=== PATIENT | male | born 1995 | race Caucasian/White ===

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

== ENCOUNTER 2017-09-22 09:41 | Emergency (ER) | payer SELFPAY, OTHER ==
[2017-09-25 19:13] LABS: HERPES SIMPLEX TYPE 1 Negative (Negative); HERPES SIMPLEX TYPE 2 Negative (Negative)
== END 2017-09-22 10:39 | disposition home or self-care (01) ==
LOC: ER 10:39
DX: A60.01 Herpesviral infection of penis (principal); Z88.0 Allergy status to penicillin
CPT/HCPCS: 36415; 87529; 99283

== ENCOUNTER 2017-12-04 06:38 | Emergency (ER) | payer SELFPAY ==
[~2017-12-04] VITALS: Ht 188 cm; Wt 83.9 kg
[~2017-12-04 06:38] MED LIST: METH-37 PO; TRAM-48 PO; VALA1000 PO
[2017-12-04] MEDS ORDERED: LIDOCAINE 2% 20 ML VIAL. IJ ONE (07:30)
[2017-12-04] MEDS ORDERED: HYDROcodone/APAP 5/325MG 1 TAB TABLET PO ONE (07:30)
[2017-12-04] MEDS ORDERED: LIDOCAINE WITH 8.4% SOD BICARB 3 ML DISP.SYRIN. ONE (07:49)
--- NOTE | 2017-12-04 07:55 | PHYS DOC ---
Past Medical History Past Medical History: No Pertinent History Past Surgical History: No Surgical History Additional Past Surgical Histo: CATARACT Alcohol Use: None Drug Use: None Adult General Chief Complaint Chief Complaint: INSECT BITE [facility] HPI Patient is a 22 year old male who presents with complaining of bug bite to right knee area. Patient complaining of painful area in medial side of the right knee for the last 24 hours and thinks he has a spider bite and denies fever and chills, drainage of pus, history of MRSA or abscess. Patient states his pain getting worse with walking. Patient is up-to-date with his tetanus immunization. Review of Systems Review of Systems Constitutional: Denies fever or chills [] Eyes: Denies change in visual acuity, redness, or eye pain [] HENT: Denies nasal congestion or sore throat [] Respiratory: Denies cough or shortness of breath [] Cardiovascular: No additional information not addressed in HPI [] GI: Denies abdominal pain, nausea, vomiting, bloody stools or diarrhea [] : Denies dysuria or hematuria [] Musculoskeletal: Denies back pain or joint pain [] Integument: Denies rash, reports skin lesions [] Neurologic: Denies headache, focal weakness or sensory changes [] Endocrine: Denies polyuria or polydipsia [] All other systems were reviewed and found to be within normal limits, except as documented in this note. Current Medications Current Medications Current Medications Medications (Trade) Dose Ordered Sig/Rosalia Start Time Stop Time Status Last Admin Dose Admin Acetaminophen/ Hydrocodone Bitart (Lortab 5/325) 1 tab 1X ONCE 12/04/17 07:30 12/04/17 07:31 DC 12/04/17 07:38 1 TAB Lidocaine HCl 20 ml 1X ONCE 12/04/17 07:30 12/04/17 07:52 DC Lidocaine/Sodium Bicarbonate (Buffered Lidocaine 1%) 3 ml 1X ONCE 12/04/17 08:00 12/04/17 08:01 DC 12/04/17 07:53 3 ML Allergies Allergies Allergies Coded Allergies Type Severity Reaction Last Updated Verified Penicillins Allergy Severe Anaphylaxis 08/02/16 Yes Physical Exam Physical Exam Constitutional: Well developed, well nourished, mild distress, non-toxic appearance. [] HENT: Normocephalic, atraumatic Eyes: PERRLA, EOMI, conjunctiva normal, no discharge. [] Neck: Normal range of motion, no tenderness, supple, no stridor. [] Cardiovascular:Heart rate regular rhythm, no murmur [] Lungs & Thorax: Bilateral breath sounds clear to auscultation [] Skin: Warm, dry, no erythema, no rash. [] Back: No tenderness, no CVA tenderness. [] Extremities: 2 x 2 centimeters area of erythema with central fluctuation in medial side of right knee with mild tenderness, no cyanosis, no clubbing, ROM intact, no edema. [] Neurologic: Alert and oriented X 3, normal motor function, normal sensory function, no focal deficits noted. [] Psychologic: Affect normal, judgement normal, mood normal. [] Current Patient Data Vital Signs Vital Signs Date Time Temp Pulse Resp B/P (MAP) Pulse Ox O2 Delivery O2 Flow Rate FiO2 12/04/17 07:39 98.2 88 18 143/86 (105) 99 Room Air 98.2 EKG EKG [] Radiology/Procedures Radiology/Procedures [] Course & Med Decision Making Course & Med Decision Making Evaluation of patient in ER showed 22-year-old male patient presented to ER with complaining of abscess of right medial knee that was drained with drainage of a small amount of pus. Patient tolerated procedure well. Patient instructed to follow-up with his primary care physician and change dressing daily.. [] Dragon Disclaimer Dragon Disclaimer This electronic medical record was generated, in whole or in part, using a voice recognition dictation system. Incision and Drainage Indication: abscess Procedure: The patient was positioned appropriately. Local anesthesia was [ ANESTHESIA]. An incision was then made over the apex of the lesion and [ DRAINAGE AMT] material was expressed. The drainage cavity was irrigated and packed with sterile gauze. The patients tetanus status updated as needed. The patient tolerated the procedure well. Complications: none. Departure Departure Impression: Primary Impression: Abscess of right lower extremity excluding foot Disposition: HOME, SELF-CARE (@ 0812) Condition: IMPROVED Referrals: EL BERGER MD (PCP) Patient Instructions: Abscess, Abscess, Care After, Community-Associated MRSA Additional Instructions: Change the dressing daily or as needed Follow-up with your primary care physician in 3-5 days Return to ER if not getting better Scripts Naproxen (NAPROSYN) 500 Mg Tablet 1 TAB PO BID PRN for PAIN, #14 TAB Prov: NICOLE HALL MD 12/04/17 Sulfamethoxazole/Trimethoprim (BACTRIM DS TABLET) 1 Each Tablet 1 TAB PO BID, #14 TAB Prov: NICOLE HALL MD 12/04/17 NICOLE HALL MD Dec 04, 2017 07:55
[2017-12-04] MEDS ORDERED: LIDOCAINE WITH 8.4% SOD BICARB 3 ML DISP.SYRIN. INJ ONE (08:00)
[2017-12-04] MEDS ORDERED: SULF1TAB24 PO (08:16)
[2017-12-04] MEDS ORDERED: NAPR-683 PO (08:16)
[2017-12-04 08:21] VITALS: BP 140/79
== END 2017-12-04 08:21 | disposition home or self-care (01) ==
LOC: ER 06:38
DX: L02.415 Cutaneous abscess of right lower limb (principal); Z88.0 Allergy status to penicillin
CPT/HCPCS: 10060; 99283

== ENCOUNTER 2019-01-03 10:15 | Emergency (ER) | payer OTHER ==
[~2019-01-03] VITALS: Ht 190.5 cm; Wt 90.7 kg
[~2019-01-03 10:15] MED LIST changes: +NAPR-683 PO; +ONDA4TAB12 PO; +SULF1TAB24 PO
[2019-01-03 11:00] VITALS: BP 139/79
[2019-01-03] MEDS ORDERED: CLIN150C14 PO (11:17)
--- NOTE | 2019-01-03 11:17 | PHYS DOC ---
Past Medical History Past Medical History: Asthma Past Surgical History: Other Additional Past Surgical Histo: L) CATARACT Alcohol Use: None Drug Use: Marijuana Adult General Chief Complaint Chief Complaint: ABSCESS HPI HPI Patient is a 23 year old Male who presents with anxiety and a quarter-sized abscess that looks to be scabbed over to his right medial dorsal wrist. Patient states abscess has been there for a couple weeks and is now starting to become tender. Abscess is quarter-sized and red with a scab in the center. Non- fluctuant. Patient states that he has been through many medications and sees a primary care doctor for his anxiety. The primary care doctor wanted him to go through the hydroxyzine and BuSpar to see if that helps his anxiety before referring him to a psychiatrist. Patient states is not working. Patient is very anxious. Patient states that he is going to [facility] himself because he feels that his doctor is not giving him the help that he needs. Rates his abscess pain 7 out of 10. Review of Systems Review of Systems Integument:Right wrist abscess. Denies rash or skin lesions [] Neurologic: Anxiety. Denies headache, focal weakness or sensory changes [] All other systems were reviewed and found to be within normal limits, except as documented in this note. Allergies Allergies Allergies Coded Allergies Type Severity Reaction Last Updated Verified Penicillins Allergy Severe Anaphylaxis 08/02/16 Yes Physical Exam Physical Exam Constitutional: Well developed, well nourished, no acute distress, non-toxic appearance. [] Skin: Right dorsal wrist medial abscess. Warm, dry, no erythema, no rash. [] Back: No tenderness, no CVA tenderness. [] Extremities: No tenderness, no cyanosis, no clubbing, ROM intact, no edema. [] Neurologic: Anxiety. Alert and oriented X 3, normal motor function, normal sensory function, no focal deficits noted. [] Psychologic: Affect normal, judgement normal, mood normal. [] EKG EKG [] Radiology/Procedures Radiology/Procedures [] Course & Med Decision Making Course & Med Decision Making Alert and oriented but very anxious. Skin pink warm and dry. AFebrile and there is no red streaking. There is no drainage in the abscess is nonfluctuant. Denies SI or HI, hallucinations, or hearing voices. I will give clindamycin abscess. Dragon Disclaimer Dragon Disclaimer This electronic medical record was generated, in whole or in part, using a voice recognition dictation system. Departure Departure Impression: Primary Impression: Abscess Additional Impression: Anxiety Disposition: 01 HOME, SELF-CARE Condition: STABLE Referrals: EL BERGER MD (PCP) Patient Instructions: Anxiety and Panic Attacks Additional Instructions: Take medication as prescribed. Follow-up with your physician as soon as possible. Scripts Clindamycin Hcl (CLINDAMYCIN HCL) 150 Mg Capsule 1 CAP PO TID, #30 CAP Prov: HEIKE WILLIAM APRN 01/03/19 Problem Qualifiers HEIKE WILLIAM APRN Jan 03, 2019 11:17
[2019-01-03] MEDS ORDERED: LORazepam 0.5 MG TABLET PO ONE (11:30)
== END 2019-01-03 11:36 | disposition home or self-care (01) ==
LOC: ER 10:15
DX: L02.413 Cutaneous abscess of right upper limb (principal); F41.9 Anxiety disorder, unspecified; J45.909 Unspecified asthma, uncomplicated; Z88.0 Allergy status to penicillin
CPT/HCPCS: 99283

== ENCOUNTER 2019-01-06 07:33 | Emergency (ER) | payer OTHER ==
[~2019-01-06] VITALS: Ht 190.5 cm; Wt 90.7 kg
[~2019-01-06 07:33] MED LIST changes: +CLIN150C14 PO
[2019-01-06 08:07] VITALS: BP 143/83
[2019-01-06] MEDS ORDERED: HYDROcodone/APAP 5/325MG 1 TAB TABLET PO ONE (09:30)
[2019-01-06] MEDS ORDERED: HYDR-3164 PO (10:32)
[2019-01-06] MEDS ORDERED: AZIT250T PO (10:32)
--- NOTE | 2019-01-06 10:32 | PHYS DOC ---
Past Medical History Past Medical History: Anxiety, Asthma, Other Additional Past Medical Histor: STOMACH ULCERS Past Surgical History: Other Additional Past Surgical Histo: L) CATARACT Alcohol Use: Rarely Drug Use: Marijuana Adult General Chief Complaint Chief Complaint: SORE THROAT HPI HPI Patient is a 23 year old male who presents with complaining of sore throat. Patient complaining of sore throat and problems swallowing for the last 2 or 3 days with subjective fever and chills. Patient denies sick contact, vomiting, diarrhea, neck pain, history of frequent sore throat. Review of Systems Review of Systems Constitutional: Denies fever or chills [] Eyes: Denies change in visual acuity, redness, or eye pain [] HENT: Denies nasal congestion, reports sore throat [] Respiratory: Denies cough or shortness of breath [] Cardiovascular: No additional information not addressed in HPI [] GI: Denies abdominal pain, nausea, vomiting, bloody stools or diarrhea [] : Denies dysuria or hematuria [] Musculoskeletal: Denies back pain or joint pain [] Integument: Denies rash or skin lesions [] Neurologic: Denies headache, focal weakness or sensory changes [] Endocrine: Denies polyuria or polydipsia [] All other systems were reviewed and found to be within normal limits, except as documented in this note. Current Medications Current Medications Current Medications Medications (Trade) Dose Ordered Sig/Rosalia Start Time Stop Time Status Last Admin Dose Admin Acetaminophen/ Hydrocodone Bitart (Lortab 5/325) 1 tab 1X ONCE 01/06/19 09:30 01/06/19 09:31 DC 01/06/19 09:39 1 TAB Allergies Allergies Allergies Coded Allergies Type Severity Reaction Last Updated Verified Penicillins Allergy Severe Anaphylaxis 08/02/16 Yes Physical Exam Physical Exam Constitutional: Well developed, well nourished, mild acute distress, non-toxic appearance. [] HENT: Normocephalic, atraumatic, bilateral external ears normal, oropharynx moist, erythema and edema of tonsils with right tonsillar exudates, nose normal. [] Eyes: PERRLA, EOMI, conjunctiva normal, no discharge. [] Neck: Normal range of motion, no tenderness, supple, no stridor. [] Cardiovascular:Heart rate regular rhythm, no murmur [] Lungs & Thorax: Bilateral breath sounds clear to auscultation [] Neurologic: Alert and oriented X 3, normal motor function, normal sensory function, no focal deficits noted. [] Psychologic: Affect normal, judgement normal, mood normal. [] Current Patient Data Vital Signs Vital Signs Date Time Temp Pulse Resp B/P (MAP) Pulse Ox O2 Delivery O2 Flow Rate FiO2 01/06/19 09:39 20 99 Room Air 01/06/19 08:07 98.2 105 143/83 (103) 98.2 Lab Values Laboratory Tests Test 01/06/19 09:00 Group A Streptococcus Rapid Positive (NEGATIVE) EKG EKG [] Radiology/Procedures Radiology/Procedures [] Course & Med Decision Making Course & Med Decision Making Pertinent Labs reviewed. (See chart for details) discharge: I've spoken with the patient and/or caregivers. I've explained the patient's condition, diagnosis and treatment plan based on information available to me at this time. I've answered the patient's and/or caregivers questions and addressed any concerns. The patient and/or caregivers have a good understanding the patient's diagnosis, condition and treatment plan as can be expected at this point. Vital signs have been stabilized. The patient's condition is stable for discharge from the emergency department. The patient will pursue further outpatient evaluation with her primary care provider or other designated consulting physician as outlined in the discharge instructions. Patient and/or caregivers are agreeable to this plan of care and follow-up instructions have been explained in detail. The patient and/or caregivers have received these instructions in written format and expressed understanding of these discharge instructions. The patient and her caregivers are aware that if any significant change in condition or worsening of symptoms s hould prompt him to immediately return to this of the closest emergency department. If an emergent department is not readily available I would encourage him to call 911. Devyn Disclaimer Devyn Disclaimer This electronic medical record was generated, in whole or in part, using a voice recognition dictation system. Departure Departure Impression: Primary Impression: Acute streptococcal pharyngitis Disposition: HOME, SELF-CARE Condition: IMPROVED (at 1029) Referrals: EL BERGER MD (PCP) Patient Instructions: Strep Throat, Group A Streptococcus Additional Instructions: Drink plenty of liquids Follow-up with your primary care physician in 3-5 days Return to ER if not getting better Scripts Azithromycin (ZITHROMAX) 250 Mg Tablet 1 PKG PO UD for infection, #1 PKG Prov: NICOLE HALL MD 01/06/19 Hydrocodone/Apap 5-325 (NORCO 5-325 TABLET) 1 Each Tablet 1 TAB PO PRN Q6HRS PRN for PAIN, #10 TAB 0 Refills Prov: NICOLE HALL MD 01/06/19 NICOLE HALL MD Jan 06, 2019 10:32
== END 2019-01-06 10:44 | disposition home or self-care (01) ==
LOC: ER 07:33
DX: J02.0 Streptococcal pharyngitis (principal); B95.5 Unspecified streptococcus as the cause of diseases classified elsewhere; F41.9 Anxiety disorder, unspecified; J45.909 Unspecified asthma, uncomplicated; Z88.0 Allergy status to penicillin
CPT/HCPCS: 87880; 99283

== ENCOUNTER 2019-03-22 10:27 | Emergency (ER) | payer OTHER ==
[~2019-03-22] VITALS: Ht 188 cm; Wt 81.6 kg
[~2019-03-22 10:27] MED LIST changes: +AZIT250T PO; +HYDR-3164 PO
[2019-03-22] MEDS ORDERED: ORPHENADRINE CITRATE 60 MG/2 ML VIAL. IM ONE (10:45)
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
[2019-03-22 11:56] VITALS: BP 126/81
[2019-03-22] MEDS ORDERED: ORPH100T PO (12:04)
[2019-03-22] MEDS ORDERED: HYDR-3164 PO (12:04)
== END 2019-03-22 12:06 | disposition home or self-care (01) ==
LOC: ER 10:27
DX: S00.12XA Contusion of left eyelid and periocular area, initial encounter (principal); M54.5 Low back pain; R55 Syncope and collapse; F41.9 Anxiety disorder, unspecified; J45.909 Unspecified asthma, uncomplicated; F12.90 Cannabis use, unspecified, uncomplicated; Z98.890 Other specified postprocedural states; Z88.0 Allergy status to penicillin; V89.2XXA Person injured in unspecified motor-vehicle accident, traffic, initial encounter; Y93.89 Activity, other specified; Y92.89 Other specified places as the place of occurrence of the external cause; Y99.8 Other external cause status
CPT/HCPCS: 70450; 72125; 96372; 99285; J2360

== ENCOUNTER → 2019-10-18 | Outpatient (CLI) | payer OTHER ==
[~2019-10-18] MED LIST changes: +ORPH100T PO; -VALA1000 PO; +VALA10008 PO
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
== END | disposition home or self-care (01) ==
LOC: KCIC 11:48
PROVIDERS: ATTEND Family Medicine
DX: M79.645 Pain in left finger(s) (principal)
CPT/HCPCS: 73130; 73140

== ENCOUNTER 2020-04-06 17:47 | Emergency (ER) | payer OTHER ==
[~2020-04-06] VITALS: Ht 188 cm; Wt 81.8 kg
[~2020-04-06 17:47] MED LIST changes: -CLIN150C14 PO; +CLIN150C15 PO
[2020-04-06 19:16] VITALS: BP 145/85
[2020-04-06] MEDS ORDERED: IBUP-1007 PO (20:14)
--- NOTE | 2020-04-06 20:14 | PHYS DOC ---
Past Medical History Past Medical History: Anxiety, Asthma, Other Additional Past Medical Histor: STOMACH ULCERS (SHON RIVERA APRN) Past Surgical History: Other Additional Past Surgical Histo: L) CATARACT (SHON RIVERA APRN) Smoking Status: Current Every Day Smoker Alcohol Use: Occasionally Drug Use: Marijuana (SHON RIVERA APRN) General Adult EDM: Chief Complaint: KNEE INJURY HPI: HPI: Patient is a 24 year old male who presents the ED today complaining of a sharp 8 out of 10 intermittent right knee pain that began after he fell down 5 steps. Patient states he was coming out of his apartment and they did not treat the steps for ice. He states he slipped and fell down 5 steps. Patient denies any loss of consciousness. Denies any inability to walk. Denies any back pain or neck pain. Denies hitting his head. He states he was able to go to work and has been on his leg for some time and now he cannot go back to work. He wants a note to excuse him from work. He states he does not want any x-rays (SHON RIVERA APRN) Review of Systems: Review of Systems: Constitutional: Denies fever or chills. [] : Denies dysuria. [] Musculoskeletal: Reports right knee pain denies back pain Integument: Denies rash. [] Neurologic: Denies headache, focal weakness or sensory changes. [] Psychiatric: Denies depression or anxiety. [] (SHON RIVERA APRN) Heart Score: Risk Factors: Risk Factors: DM, Current or recent (<one month) smoker, HTN, HLP, family history of CAD, obesity. Risk Scores: Score 0 - 3: 2.5% MACE over next 6 weeks - Discharge Home Score 4 - 6: 20.3% MACE over next 6 weeks - Admit for Clinical Observation Score 7 - 10: 72.7% MACE over next 6 weeks - Early Invasive Strategies (SHON RIVERA APRN) Allergies: Allergies: Allergies Coded Allergies Type Severity Reaction Last Updated Verified Penicillins Allergy Severe Anaphylaxis 08/02/16 Yes (SHON RIVERA APRN) Physical Exam: PE: Constitutional: Well developed, well nourished, no acute distress, non-toxic appearance. [] HENT: Normocephalic, atraumatic, bilateral external ears normal, oropharynx moist, no oral exudates, nose normal. [] Eyes: PERRLA, EOMI, conjunctiva normal, no discharge. [] Neck: Normal range of motion, no tenderness, supple, no stridor. [] Cardiovascular:Heart rate regular rhythm, no murmur [] Lungs & Thorax: Bilateral breath sounds clear to auscultation [] Abdomen: Bowel sounds normal, soft, no tenderness, no masses, no pulsatile masses. [] Skin: Warm, dry, no erythema, no rash. [] Back: No tenderness, no CVA tenderness. [] Extremities: No tenderness, no cyanosis, no clubbing, ROM intact, no edema. [] Neurologic: Alert and oriented X 3, normal motor function, normal sensory function, no focal deficits noted. [] Psychologic: Affect normal, judgement normal, mood normal. [] (SHON RIVERA APRN) Current Patient Data: Vital Signs: Vital Signs Date Time Temp Pulse Resp B/P (MAP) Pulse Ox O2 Delivery O2 Flow Rate FiO2 04/06/20 19:16 98.7 69 20 145/85 (105) 99 Room Air 98.7 (SHON RIVERA APRN) EKG: EKG: [] (SHON RIVERA APRN) Radiology/Procedures: Radiology/Procedures: [] (SHON RIVERA APRN) Course & Med Decision Making: Course & Med Decision Making Pertinent Labs and Imaging studies reviewed. (See chart for details) This is a 24-year-old male patient presenting to the ED today with right knee pain after falling down 5 steps. Denies any loss of consciousness. Requesting a note for work and refusing any further work-up. Also requesting prescription for ibuprofen. Note for work was provided and prescription provided for ibuprofen discharged with follow-up with orthopedic doctor. (SHON RIVERA APRN) Dragon Disclaimer: Dragon Disclaimer: This electronic medical record was generated, in whole or in part, using a voice recognition dictation system. (SHON RIVERA APRN) Departure Departure Impression: Primary Impression: Fall down steps Qualified Codes: W10.8XXA - Fall (on) (from) other stairs and steps, initial encounter Additional Impression: Knee pain, right Qualified Codes: M25.561 - Pain in right knee Disposition: 01 DC HOME SELF CARE/HOMELESS Condition: STABLE Referrals: EL BERGER MD (PCP) BARRY SANTANA MD follow up in 1 week Patient Instructions: Fall Prevention and Home Safety, Knee Pain, [id number] Additional Instructions: You were seen for right knee pain. Please follow-up with your own doctor or the orthopedic doctor provided in 1 to 2 weeks if pain persist. Ice elevate the knee. Take the prescribed ibuprofen as needed for pain. You can also take Tylenol Scripts Ibuprofen (IBUPROFEN) 600 Mg Tablet 600 MG PO PRN Q6HRS PRN for INFLAMMATION, #14 TAB Prov: SHON RIVERA APRN 04/06/20 Attending Signature Attending Signature I have reviewed the PA/REIMBURSEMENT AUDITOR's note and plan of care. I was available for consultation as needed during the patient's visit in the emergency department. I agree with the clinical impression, plan, and disposition. (ERNST BLAIR DO) SHON RIVERA APRN Apr 06, 2020 20:14 ERNST BLAIR DO Apr 07, 2020 03:06
== END 2020-04-06 20:23 | disposition home or self-care (01) ==
LOC: ER 17:47
DX: M25.561 Pain in right knee (principal); G89.11 Acute pain due to trauma; J45.909 Unspecified asthma, uncomplicated; F17.200 Nicotine dependence, unspecified, uncomplicated; Z88.0 Allergy status to penicillin; W10.8XXA Fall (on) (from) other stairs and steps, initial encounter; Y93.89 Activity, other specified; Y92.89 Other specified places as the place of occurrence of the external cause; Y99.8 Other external cause status
CPT/HCPCS: 99282